=== PATIENT | female | born 1960 | race Caucasian/White ===

== ENCOUNTER → 2020-02-15 | Outpatient (CLI) | payer OTHER ==
--- NOTE | 2020-02-17 16:25 | RAD ---
Examination: MG 2D BILAT SCREENING History: Reason: SCREENING MAMMOGRAM / Spl. Instructions: / History: Comparison/Correlation: None. Prior exams were reportedly performed more than 10 years ago in [facility] and are not available. This exam as a result is considered as a baseline. FINDINGS: Full-field digital screening mammography was performed bilaterally. MLO and CC projections bilaterally were provided. CAD was utilized. The breasts are heterogeneously dense, which may obscure small masses. Small asymmetry far posterior right MLO view is located 7.2 cm from the nipple asymmetry in the right outer breast anteriorly on the CC compression also is present. Small asymmetry of the right upper br east level which may represent a lymph node is present. Asymmetry of the left breast anteriorly is also evident laterally. There is a small asymmetry at the upper posterior aspect of the left breast 8 cm from the nipple on the MLO projection. IMPRESSION: BI-RADS Category: 0-incomplete. Spot compression imaging bilaterally is recommended. Ultrasound eval uation may be needed bilaterally. Patient information is entered into reminder system with a target due date for the next screening [facility]. Mammography is the most sensitive method for finding small breast cancers, but it does not detect the m all and is not a substitute for careful clinical examination. A negative mammogram does not negate a clinically suspicious finding and should not result in delay in biopsying a clinically suspicious a bnormality. "Our facility is accredited by the [employer] Mammography Program." Electronically signed by: Osvaldo Redd MD (02/17/2020 4:23 PM) [id number]
== END ==
LOC: MAMMO 15:03
PROVIDERS: ATTEND Nurse Practitioner Family
DX: Z12.31 Encounter for screening mammogram for malignant neoplasm of breast (principal)
CPT/HCPCS: 77063; 77067